=== PATIENT | male | born 1940 | race Caucasian/White ===

== ENCOUNTER → 2017-08-13 | Outpatient (CLI) | payer MEDICARE, OTHER | END | disposition home or self-care (01) | LOC: GMAB 15:23 | PROVIDERS: ATTEND Family Medicine | DX: Z12.5 Encounter for screening for malignant neoplasm of prostate (principal); I10 Essential (primary) hypertension | CPT/HCPCS: 84443; G0103 ==

== ENCOUNTER → 2018-01-14 | Outpatient (CLI) | payer MEDICARE, OTHER | LOC: GMATM 20:17 | PROVIDERS: ATTEND Nurse Practitioner Family | DX: N34.1 Nonspecific urethritis (principal) ==

== ENCOUNTER 2018-09-11 14:22 | Emergency (ER) | payer MEDICARE, OTHER ==
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
--- NOTE | 2018-09-11 15:18 | RAD ---
EXAM DESCRIPTION: Chest,1 View CLINICAL HISTORY: 78 years Male, SOB COMPARISON: None. TECHNIQUE: AP portable chest. FINDINGS: Heart size is normal with normal pulmonary vascularity. No consolidating infiltrate. No pulmonary mass or worrisome nodule. No pneumothorax or pleural effusion. Bones are unremarkable. IMPRESSION: No acute process is identified in the chest. Electronically signed by: Joaquin Lamb MD 09/11/2018 3:16 PM CDT
[2018-09-11 15:42] VITALS: TEMP 97.6
[2018-09-11 17:10] VITALS: BP 145/89; O2SAT 96
== END 2018-09-11 17:00 | disposition home or self-care (01) ==
LOC: ER 14:22
DX: F03.91 Unspecified dementia, unspecified severity, with behavioral disturbance (principal)